=== PATIENT | female | born 1950 | race Caucasian/White ===

== ENCOUNTER 2022-03-20 07:18 | Day surgery (SDC) | payer MEDICARE, OTHER ==
[~2022-03-20] VITALS: Ht 162.6 cm; Wt 76.2 kg
[~2022-03-20 07:18] MED LIST: ATORVASTATIN CA10 MG PO; BIOTIN1 MG PO; CALCIUM 250-D1 EACH PO; MULTI-VITAMIN1 EACH PO; VITAMIN D325 MCG PO
[2022-03-20] MEDS ORDERED: OMEGA-31000 MG PO (07:46)
--- NOTE | 2022-03-20 07:59 | NUR ---
4 TO 6 WEEKS AGO HIT HEAD WITH SHOVEL AND KNOCKED SELF OUT PER STATEMENT.
--- NOTE | 2022-03-20 09:05 | NUR ---
03/20/22 0905 Irma Boland OXYGEN SATURATION 99% ON 2L VIA NC. OXYGEN IS TURNED OFF AT THIS TIME.
--- NOTE | 2022-03-20 09:45 | OR ---
[facility] [address], [place] [address] Signed DATE OF OPERATION: 03/20/2022 SURGEON: Natanael Fajardo MD PREOPERATIVE DIAGNOSIS: Brother with colonic polyps. POSTOPERATIVE DIAGNOSES: 1. Mild to moderate sigmoid diverticulosis. 2. Angulated and narrow sigmoid colon, particularly at 30-40 cm. PROCEDURE: Colonoscopy biopsy. ESTIMATED BLOOD LOSS: None. INDICATIONS: Martina is a 71-year-old female, asked to see me for her initial colonoscopy. She has been doing stool studies over the years. They have all been negative. Her brother has had multiple colonic polyps removed over several years. Consequently, she really should be on the 5-year rotation for her own colonoscopies. She has no lower GI complaints. In the office, I gave her a pamphlet on colonoscopy. She understands the nature of the test. There is risk including, but not limited to gas bloating, crampy abdominal pain, bleeding, perforation requiring surgery, and missed diagnosis. We also discussed the need for IV conscious sedation. There was also some concern by her primary care provider about a left pelvic mass. Ultrasound was ordered, but she had not followed up. Martina had expressed understanding and wished to proceed. PROCEDURE NOTE: Martina was taken into our endoscopy suite and placed in the left lateral decubitus position. She was given a total of 7 mg of Versed and 100 mcg of fentanyl to cover the case. A digital rectal exam was performed and this was unremarkable. The adult colonoscope was introduced and advanced under direct visualization of the camera. She has a fairly difficult sigmoid colon. It is narrowed with mild to moderate sized diverticula and is particularly difficult around 30-40 cm. The scope kept buckling as we came into the left colon. We had increased her Versed and fentanyl. She was uncomfortable and awake during much of that period. It would be garcia if she consider monitored anesthesia care with propofol in the future. Thankfully, her prep was quite excellent. We rotated her into the supine position and still no improvement. We Electronically Signed By: NATANAEL FAJARDO MD 03/20/22 0945 PATIENT NAME: MARTINA AREVALO OPERATIVE REPORT DATE OF : 48 REPORT #: [id number] PHYSICIAN: NATANAEL FAJARDO MD PCP: DAWNA CHAVEZ REPORT IS CONFIDENTIAL AND NOT TO BE RELEASED WITHOUT AUTHORIZATION [facility] [address], [place] [address] Signed rotated her back into the left lateral decubitus position. We use to reposition our hands on the abdomen to straighten the scope and on that occasion we were able to get the scope to pass around and into her cecum. Thankfully, her colon is not particularly long. The length was only about 70 cm. We could easily see the appendiceal orifice and the ileocecal valve. The scope was then slowly withdrawn. Even coming out with the scope, it was dragging through the sigmoid colon. Again, it is narrowed and angulated. The diverticula are moderate in size, few in number, and scattered about. The rectum was unremarkable. Upon retroflexion of the scope, there was no additional pathology noted above the anal canal. After this, the gas suctioned out and the colonoscope removed. Martina tolerated the procedure quite well. RECOMMENDATIONS: I will see Martina back in my office in 5 years for repeat colonoscopy. She should consider monitored anesthesia care in the future. MD MYA Cheung/MODL /[id number] cc: MD Dawna Cheung PA Copies: NATANAEL FAJARDO MD, LINDA PA ~ Electronically Signed By: NATANAEL FAJARDO MD 03/20/22 0945 PATIENT NAME: MARTINA AREVALO OPERATIVE REPORT DATE OF : 48 REPORT #: [id number] PHYSICIAN: NATANAEL FAJARDO MD PCP: DAWNA CHAVEZ REPORT IS CONFIDENTIAL AND NOT TO BE RELEASED WITHOUT AUTHORIZATION
== END 2022-03-20 09:30 | disposition home or self-care (01) ==
LOC: OPS 07:18 → DS 07:18 → OPS 08:15
PROVIDERS: ATTEND Colon & Rectal Surgery
PROC: 0DJD8ZZ Inspection of Lower Intestinal Tract, Via Natural or Artificial Opening Endoscopic (ICD-10-PCS; principal; 2022-03-20 08:15)
DX: Z12.11 Encounter for screening for malignant neoplasm of colon (principal); Z83.71 Family history of colonic polyps; K56.609 Unspecified intestinal obstruction, unspecified as to partial versus complete obstruction; K57.30 Diverticulosis of large intestine without perforation or abscess without bleeding; E78.00 Pure hypercholesterolemia, unspecified
CPT/HCPCS: G0121; 99153; G0500; J2250; J3010; J7121